=== PATIENT | male | born 1990 | race Caucasian/White ===

== ENCOUNTER 2017-09-11 05:24 | Emergency (ER) | payer OTHER ==
[~2017-09-11] VITALS: Ht 165.1 cm; Wt 52.3 kg
[2017-09-11 05:31] VITALS: TEMP 36.6; O2SAT 97; Ht 165.1 cm; Wt 52.3 kg
[2017-09-11 06:14] LABS: CALCIUM 7.9 mg/dl (8.5-10.1); CREATININE 0.84 mg/dl (0.60-1.40); POTASSIUM 3.4 mmol/L (3.5-5.1)
--- NOTE | 2017-09-11 11:05 | EMERGENCY ROOM VISIT NOTE ---
ED Visit Note ED NOTE: Care of this 26-year-old male patient was signed out to me from Tato Sawant PA-C , at change of shift. Please refer to his dictation for the history, physical exam and ED course to this point. At change of shift, the patient was being observed as he was acutely intoxicated. His blood alcohol level was over 300. He remained hemodynamically stable while in the emergency department until he reached a clinically sober state. He was reassessed after he had been in the emergency department for roughly 6 hours. He was ambulatory in to the restroom , and tolerated oral fluids. He was reassessed and had no further complaints. He was discharged home in good condition with a sober ride. DIAGNOSIS: Acute alcohol overdose. DISCHARGE INSTRUCTIONS: DO NOT drive, drink alcohol, operate machinery, or perform dangerous activities today. Rest and drink plenty of fluids. Drink alcohol responsibly and only in moderation. Ibuprofen(Motrin, Advil) may be used for fever or pain. Use 600mg every six hours as needed. Take with food. Avoid using more than 2400mg in a 24 hour period. Do not use 2400mg per day for more than three consecutive days without physician direction. Prolonged inappropriate use can lead to stomach upset or ulcers. This is available over the counter and typically comes in 200mg tablets. Follow up with your primary care physician as needed. Return to the ER for vomiting, abdominal pain, severe headache, neck pain, vomiting blood or bloody stools, passing out, worsening of your condition, or as needed.
[2017-09-11 12:04] VITALS: BP 115/67; PULSE 97; O2SAT 98
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
== END 2017-09-11 12:05 | disposition home or self-care (01) ==
LOC: EDBD 05:24 → C.EDB 05:25
DX: T51.91XA Toxic effect of unspecified alcohol, accidental (unintentional), initial encounter (principal); Y90.8 Blood alcohol level of 240 mg/100 ml or more; S50.311A Abrasion of right elbow, initial encounter; S30.810A Abrasion of lower back and pelvis, initial encounter; X58.XXXA Exposure to other specified factors, initial encounter

== ENCOUNTER → 2017-09-11 | Outpatient (CLI) | payer OTHER | END | disposition home or self-care (01) | LOC: C.LAB 02:55 | DX: Z02.83 Encounter for blood-alcohol and blood-drug test (principal) ==